=== PATIENT | female | born 2000 | race African-American/Black ===

== ENCOUNTER 2020-12-23 08:08 | Emergency (ER) | payer OTHER ==
[~2020-12-23] VITALS: Ht 147.3 cm; Wt 49.9 kg
[2020-12-23 08:47] LABS: PLATELET COUNT 210 K/uL (152-353)
[2020-12-23 09:29] LABS: POTASSIUM 3.8 mmol/L (3.6-5.2)
[2020-12-23 10:44] VITALS: BP 116/71; TEMP 97.2
== END 2020-12-23 10:44 | disposition home or self-care (01) ==
LOC: ED 08:08
PROVIDERS: Hospitalist
DX: R10.84 Generalized abdominal pain (principal); N30.90 Cystitis, unspecified without hematuria
CPT/HCPCS: 36415; 80053; 81000; 81025; 82150; 83690; 85027; 96360; 96374; 96375; 99284; J1885; J2405